=== PATIENT | male | born 1985 | race Caucasian/White ===

== ENCOUNTER 2017-07-17 23:22 | Observation (INO) | payer BC ==
[2017-07-17] MEDS ORDERED: THIAMINE 200 MG/2 ML IM ONE (23:25)
[2017-07-17] MEDS ORDERED: Dextrose 5%-Lr IV Solution 1000 ML 1,000 ML IV SCH (23:30)
--- NOTE | 2017-07-17 23:37 | ERPHSYRPT ---
- History of Present Illness Time Seen by Provider: 07/17/17 23:25 Source: patient, police (placed under [facility]) Patient Subjective Stated Complaint: states here because of drinking Triage Nursing Assessment: admits to drinking daily 1/2 pint to fifth of vodka Physician History: CC: suicidal thoughts Hx: 32 y/o patient withy no local doctor. He is a regular drinker of alcohol. He lives home with his mom, sister, and step dad. He has a girlfriend. Police were called by family after he told them he wanted to kill himself. He states he wanted to drive a car into a [place]. He now does not feel that way. Drank today. Prior suicide thoughts of cutting himself. 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 Severity of Symptoms-Max: moderate Severity of Symptoms-Current: mild Allergies/Adverse Reactions: No Known Drug Allergies Allergy (Unverified 08/23/13 11:28) Home Medications: No Home Meds [No Home Meds] 08/23/13 [History] Hx Tetanus, Diphtheria Vaccination/Date Given: Yes Hx Influenza Vaccination/Date Given: No Hx Pneumococcal Vaccination/Date Given: No Immunizations Up to Date: Yes - Past Medical History Pertinent Past Medical History: Yes Psycho-Social History: Other Other Medical History: LUNG COLLAPSE - Past Surgical History Past Surgical History: Yes Other Surgical History: REINFLATION OF LUNG-CHEST TUBE - Social History Smoking Status: Current every day smoker How long have you smoked: YRS Exposure to second hand smoke: Yes Drug Use: none Patient Lives Alone: No - Review of Systems Constitutional: No Symptoms Eyes: No Symptoms Respiratory: No Cough, No Dyspnea Cardiac: No Chest Pain Abdominal/Gastrointestinal: No Abdominal Pain, No Vomiting Musculoskeletal: No Back Pain, No Neck Pain Skin: No Rash Neurological: No Headache Psychological: Alcohol Abuse, Suicidal Ideations, No Drug Abuse All Other Systems: Reviewed and Negative - Nursing Vital Signs Nursing Vital Signs: Initial Vital Signs Temperature 98 F 07/17/17 23:24 Pulse Rate 124 H 07/17/17 23:24 Respiratory Rate 20 07/17/17 23:24 Blood Pressure 129/86 07/17/17 23:24 O2 Sat by Pulse Oximetry 98 07/17/17 23:24 Pain Scale Pain Intensity 0 - Physical Exam General Appearance: alert Eyes, Ears, Nose, Throat Exam: normal ENT inspection, moist mucous membranes Neck Exam: normal inspection, non-tender, supple Respiratory Exam: normal breath sounds Cardiovascular Exam: regular rate/rhythm Gastrointestinal/Abdominal Exam: soft, No tenderness, No distention, No mass, No guarding Extremities Exam: normal inspection, normal range of motion Neurological Exam: alert, 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, oriented x 3 Appearance: appropriate appearance Behavior/Eye Contact/Speech: alert & cooperative (flat affect) Thoughts/Hallucinations: normal thought pattern Skin Exam: warm, dry, No rash SpO2 Interpretation: normal SpO2: 98 Oxygen Delivery: Room Air - Course Nursing assessment & vital signs reviewed: Yes Ordered Tests: Active Orders 24 hr Category Date Time Status Clean Catch Urine Specimen STAT Care 07/17/17 23:25 Active IV Insertion STAT Care 07/17/17 23:25 Active UA W/ MICROSCOPIC Stat Lab 07/17/17 00:50 Completed Urine Triage Profile Stat Lab 07/17/17 00:50 Completed Medication Summary Generic Name Dose Route Start Last Admin Trade Name Freq PRN Reason Stop Dose Admin Dextrose/Lactated Ringer's 1,000 mls @ 100 mls/hr 07/17/17 23:30 07/17/17 23: 52 Dextrose 5%-Lr Iv Solution 1000 Ml IV 08/16/17 23:29 100 mls/hr .Q10H NNEKA Administration Discontinued Medications Generic Name Dose Route Start Last Admin Trade Name Freq PRN Reason Stop Dose Admin Thiamine HCl 100 mg 07/17/17 23:25 07/17/17 23:52 Thiamine 200 Mg/2 Ml IM 07/17/17 23:26 100 mg STAT ONE Administration Thiamine HCl Confirm 07/17/17 23:40 Thiamine 200 Mg/2 Ml Administered 07/17/17 23:41 Dose 200 mg .ROUTE .STK-MED ONE Lab/Rad Data: Laboratory Result Diagrams 07/17/17 00:00 07/17/17 00:00 Laboratory Results 07/17/17 07/17/17 07/17/17 Range/Units 00:50 00:50 00:00 WBC (4.0-10.5) K/mm3 RBC (4.1-5.6) M/mm3 Hgb (12.5-18.0) gm/dl Hct (42-50) % MCV (78-100) fl MCH (26-32) pg MCHC (32-36) g/dl RDW (11.5-14.0) % Plt Count (150-450) K/mm3 MPV (6-9.5) fl Gran % (36.0-66.0) % Lymphocytes % (24.0-44.0) % Monocytes % (0.0-12.0) % Eosinophils % (0.00-5.0) % Basophils % (0.0-0.4) % Basophils # (0-0.4) Sodium (136-145) mEq/L Potassium (3.5-5.1) mEq/L Chloride (98-107) mEq/L Carbon Dioxide (21-32) mEq/L Anion Gap (5-15) MEQ/L BUN (9-20) mg/dL Creatinine (0.55-1.30) mg/dl Estimated GFR ML/MIN Glucose (70-110) MG/DL Calcium (8.5-10.1) mg/dL Magnesium 1.9 (1.8-2.4) mg/dL Total Bilirubin (0.2-1.0) mg/dL AST (15-37) U/L ALT (12-78) U/L Alkaline Phosphatase (46-116) U/L Serum Total Protein (6.4-8.2) gm/dL Albumin (3.4-5.0) g/dL Ur Collection Type CCMS Urine Color YELLOW (YELLOW) Urine Appearance CLEAR (CLEAR) Urine pH 7.0 (5-6) Ur Specific [place] 1.015 (1.005-1.025) Urine Protein TRACE (Negative) Urine Ketones NEGATIVE (NEGATIVE) Urine Blood NEGATIVE (0-5) Vj/ul Urine Nitrite NEGATIVE (NEGATIVE) Urine Bilirubin NEGATIVE (NEGATIVE) Urine Urobilinogen NORMAL (0-1) mg/dL Ur Leukocyte Esterase NEGATIVE (NEGATIVE) Urine Microscopic WBC 0-2 (0-5) /HPF Ur Epithelial Cells RARE (FEW) /HPF Urine Culture Reflexed NO (NO) Urine Glucose NEGATIVE (NEGATIVE) mg/dL Salicylates (2.8-20.0) mg/dl Urine Opiates Level NEG. (NEGATIVE) Ur Methadone NEG. (NEGATIVE) Acetaminophen (10-30) ug/ml Urine Barbiturates NEG. (NEGATIVE) Ur Phencyclidine (PCP) NEG. (NEGATIVE) Urine Amphetamine NEG. (NEGATIVE) U Benzodiazepine Level NEG. (NEGATIVE) Urine Cocaine NEG. (NEGATIVE) Urine Marijuana (THC) NEG. (NEGATIVE) Ethyl Alcohol (0.00-0.01) % Specimen Received 07-18-17 0100 07/17/17 07/17/17 Range/Units 00:00 00:00 WBC 7.0 (4.0-10.5) K/mm3 RBC 4.58 (4.1-5.6) M/mm3 Hgb 15.2 (12.5-18.0) gm/dl Hct 45.6 (42-50) % MCV 99.6 (78-100) fl MCH 33.2 H (26-32) pg MCHC 33.3 (32-36) g/dl RDW 13.0 (11.5-14.0) % Plt Count 171 (150-450) K/mm3 MPV 11.0 H (6-9.5) fl Gran % 59.9 (36.0-66.0) % Lymphocytes % 29.4 (24.0-44.0) % Monocytes % 8.2 (0.0-12.0) % Eosinophils % 2.4 (0.00-5.0) % Basophils % 0.1 (0.0-0.4) % Basophils # 0.01 (0-0.4) Sodium 146 H (136-145) mEq/L Potassium 3.8 (3.5-5.1) mEq/L Chloride 109 H (98-107) mEq/L Carbon Dioxide 25.2 (21-32) mEq/L Anion Gap 15.6 H (5-15) MEQ/L BUN 7 L (9-20) mg/dL Creatinine 0.78 (0.55-1.30) mg/dl Estimated GFR > 60 ML/MIN Glucose 130 H (70-110) MG/DL Calcium 9.1 (8.5-10.1) mg/dL Magnesium (1.8-2.4) mg/dL Total Bilirubin 0.10 L (0.2-1.0) mg/dL AST 45 H (15-37) U/L ALT 62 (12-78) U/L Alkaline Phosphatase 120 H (46-116) U/L Serum Total Protein 8.0 (6.4-8.2) gm/dL Albumin 3.8 (3.4-5.0) g/dL Ur Collection Type Urine Color (YELLOW) Urine Appearance (CLEAR) Urine pH (5-6) Ur Specific [place] (1.005-1.025) Urine Protein (Negative) Urine Ketones (NEGATIVE) Urine Blood (0-5) Vj/ul Urine Nitrite (NEGATIVE) Urine Bilirubin (NEGATIVE) Urine Urobilinogen (0-1) mg/dL Ur Leukocyte Esterase (NEGATIVE) Urine Microscopic WBC (0-5) /HPF Ur Epithelial Cells (FEW) /HPF Urine Culture Reflexed (NO) Urine Glucose (NEGATIVE) mg/dL Salicylates 3.3 (2.8-20.0) mg/dl Urine Opiates Level (NEGATIVE) Ur Methadone (NEGATIVE) Acetaminophen < 2.0 L (10-30) ug/ml Urine Barbiturates (NEGATIVE) Ur Phencyclidine (PCP) (NEGATIVE) Urine Amphetamine (NEGATIVE) U Benzodiazepine Level (NEGATIVE) Urine Cocaine (NEGATIVE) Urine Marijuana (THC) (NEGATIVE) Ethyl Alcohol 0.415 H* (0.00-0.01) % Specimen Received - Progress Progress Note: 07/18/17 01:18 Pt has been cooperative. BAL 0.415. Will no tbe able to obtain mental health consult at that level tonite. Advised pt and parents he will be admitted to ICU observation with consult in AM. Spoke to Dr Murrell (oc) for admission to obs ICU. Discussed with : Handy Will see patient in: hospital (observation) Counseled pt/family regarding: lab results, diagnosis, need for follow-up - Departure Time of Disposition: 01:19 Departure Disposition: Observation (ICU) Clinical Impression: Suicide ideation, police immediate snf, Alcohol intoxication Condition: Stable Critical Care Time: No
[2017-07-17] MEDS ORDERED: THIAMINE 200 MG/2 ML ONE (23:40)
[2017-07-17] MEDS ORDERED: Dextrose 5%-Lr IV Solution 1000 ML 1,000 ML IV ONE (23:40)
[2017-07-18 00:11] LABS: BASOPHIL % 0.1 % (0.0-0.4); Basophil (Absolute #) 0.01 (0-0.4); Eosinophil % 2.4 % (0.00-5.0); Eosinophil (Absolute #) 0.17 (0-0.5); Granulocyte Absolute (ANC) 4.16 (1.4-6.9); Granulocytes % 59.9 % (36.0-66.0); Hematocrit 45.6 % (42-50); Hemoglobin 15.2 gm/dl (12.5-18.0); Lymphocyte (Absolute #) 2.04 (1.0-4.6); Lymphocytes % 29.4 % (24.0-44.0); Mean Cell Volume 99.6 fl (78-100); Mean Corpuscular Hemoglobin 33.2 pg (26-32); Mean Corpuscular Hgb Concent. 33.3 g/dl (32-36); Monocyte (Absolute #) 0.57 (0.0-1.3); Monocytes % 8.2 % (0.0-12.0); Platelet Count 171 K/mm3 (150-450); Red Blood Count 4.58 M/mm3 (4.1-5.6)
[2017-07-18 00:28] LABS: ALBUMIN 3.8 g/dL (3.4-5.0); ALKALINE PHOSPHATASE 120 U/L (46-116); ANION GAP 15.6 MEQ/L (5-15); BLOOD UREA NITROGEN 7 mg/dL (9-20); CHLORIDE 109 mEq/L (98-107); Calcium 9.1 mg/dL (8.5-10.1); Carbon Dioxide 25.2 mEq/L (21-32); Creatinine 1 0.78 mg/dl (0.55-1.30); EST GLOMERULAR FILTRATION RATE > 60 ML/MIN; Glucose 130 MG/DL (70-110); Potassium 3.8 mEq/L (3.5-5.1); SALICYLATE 3.3 mg/dl (2.8-20.0); SGOT/AST 45 U/L (15-37); SGPT/ALT 62 U/L (12-78); SODIUM 146 mEq/L (136-145)
[2017-07-18 00:30] LABS: ACETAMINOPHEN < 2.0 ug/ml (10-30)
[2017-07-18 00:31] LABS: ETHYL ALCOHOL 0.415 % (0.00-0.01)
[2017-07-18 01:10] LABS: Amphetamine,Urine NEG. (NEGATIVE); Barbiturate,Urine NEG. (NEGATIVE); Benzodiazepine,Urine NEG. (NEGATIVE); Cocaine,Urine NEG. (NEGATIVE); Methadone,Urine NEG. (NEGATIVE); Opiate,Urine NEG. (NEGATIVE); PCP,Urine NEG. (NEGATIVE); THC,Urine NEG. (NEGATIVE)
[2017-07-18 01:12] LABS: Appearance CLEAR (CLEAR); Bilirubin NEGATIVE (NEGATIVE); Blood NEGATIVE Ery/ul (0-5); Epithelial Cells RARE /HPF (FEW); Glucose NEGATIVE (NEGATIVE); Ketones NEGATIVE (NEGATIVE); Leukocyte Esterase NEGATIVE (NEGATIVE); Nitrite NEGATIVE (NEGATIVE); Protein,Urine Dip TRACE (Negative); Specific Gravity 1.015 (1.005-1.025); Urobilinogen NORMAL mg/dL (0-1); WBC 0-2 /HPF (0-5)
[2017-07-18] MEDS ORDERED: TYLENOL 325 MG PO PRN (02:31)
[2017-07-18] MEDS ORDERED: Dextrose 5%-Lr IV Solution 1000 ML 1,000 ML IV SCH (02:31)
--- NOTE | 2017-07-18 14:38 | PCM.SSS ---
History of Present Illness - Chief Complaint Chief Complaint: suicide ideation History of Present Illness: is a 32 year old male who was admitted last night, intoxicated, with suicidal ideation. He came through the ER and was apparently detained by the police. He said he wanted to kill himself. This morning he states he is feeling, "alright," does not want to harm himself. He has a history of intermittent depression; has been on meds before but no previous admissions to psychiatric facility for depression or suicide attempt. He has, however, been inpatient in a detox facility for alcohol addiction. Currently he admits to drinking up to a fifth of alcohol a day. Prior to admission he had a larger amount of alcohol. He states he remembers all of that. Last detox admission about 2 years ago. - Review of Systems Constitutional: Weight Loss (15 lb in past 2 mo, he thinks related to his increased activity at work.) Respiratory: Cough (this morning) Psychological: Depression, Suicidal Ideations (none currently), No Anxiety, No Homicidal Ideations All Other Systems: Reviewed and Negative Medications & Allergies Home Medications: Home Medication List Amoxicillin [Amoxil] 500 mg PO QID #40 capsule 08/23/13 [Rx] No Home Meds [No Home Meds] 08/23/13 [History Confirmed 08/23/13] Fluoxetine HCl 20 mg [Prozac 20 MG] 20 mg PO DAILY #30 cap 07/18/17 [Rx] Allergies/Adverse Reactions: Allergies Allergy/AdvReac Type Severity Reaction Status Date / Time No Known Drug Allergies Allergy Unverified 08/23/13 11:28 - Past Medical History Past Medical History: Yes Pyscho-Social History: Other Comment: LUNG COLLAPSE - Past Surgical History Past Surgical History: Yes Other Surgical History: REINFLATION OF LUNG-CHEST TUBE - Social History Smoking Status: Unknown if ever smoked How long have you smoked: YRS Exposure to second hand smoke: Yes Alcohol: Daily Drug Use: none - Physical Exam Vital Signs: Vital Signs - 24 hr Temp Pulse Resp BP Pulse Ox 07/18/17 13:21 93 H 16 138/86 96 07/18/17 12:00 93 H 07/18/17 08:00 97.8 F 90 16 105/67 96 07/18/17 05:18 98.7 F 90 15 113/53 95 07/18/17 04:00 98.7 F 90 19 113/65 93 L 07/18/17 01:31 98.7 F 111 H 131/68 96 07/18/17 01:19 98 07/17/17 23:24 98 F 124 H 20 129/86 98 General Appearance: no apparent distress, alert Neurologic Exam: oriented x 3, cooperative Eye Exam: eyes nml inspection, other (pupils sluggishly reactive bilat) Ears, Nose, Throat Exam: pharynx normal, moist mucous membranes Neck Exam: normal inspection, non-tender, supple, No lymphadenopathy Respiratory Exam: normal breath sounds, lungs clear, No crackles/rales, No rhonchi, No wheezing Cardiovascular Exam: regular rate/rhythm, normal heart sounds, No murmur Gastrointestinal/Abdomen Exam: soft, normal bowel sounds, No tenderness, No distention, No mass Back Exam: normal inspection, No rash Extremity Exam: normal inspection, No pedal edema, No swelling Skin Exam: normal color, warm, dry, No rash Results - Labs Lab/Micro Results: Lab Results-Last 24 Hours 07/18/17 07/18/17 Range/Units 05:15 12:02 Ethyl Alcohol 0.229 H* 0.048 H (0.00-0.01) % Assessment/Plan (1) Suicide ideation Current Visit: Yes Status: Resolved Assessment & Plan: [facility] consult done, they recommended outpatient detox as below. Code(s): R45.851 - SUICIDAL IDEATIONS (2) Depression Current Visit: Yes Status: Chronic Qualifiers: Depression Type: major depressive disorder Active/Remission status: currently active Psychotic features: without psychotic features Assessment & Plan: Will start pt on po prozac; he is to follow up with his PCP in 1 week then as directed. Code(s): F32.9 - MAJOR DEPRESSIVE DISORDER, SINGLE EPISODE, UNSPECIFIED (3) Alcohol intoxication Current Visit: Yes Status: Acute Qualifiers: Complication of substance-induced condition: uncomplicated Qualified Code(s ): F10.920 - Alcohol use, unspecified with intoxication, uncomplicated Assessment & Plan: His level is down, will recheck one more time at 4 pm and send him home then ( his mom will take him home). Should be fine to return to work tomorrow. Regarding chronic abuse of alcohol, [facility] recommended outpatient detox. He will need a program so that he does not have dangerous withdrawal considering the large amount of alcohol he ingests daily (would worry about Delerium Tremens). Hospital Summary - Hospital Course Hospital Course: Pt admitted w suicidal ideation, intoxicated. Found to have KATERINA of 0.415%. In the morning he denies suicidal ideation. [facility] recommends outpatient alcohol detox. I am starting him on 20 mg prozac daily. He is to f/u with PCP in 1 week. - Vitals & Intake/Output Vital Signs: Vital Signs Temperature 97.8 F 07/18/17 08:00 Pulse Rate 93 H 07/18/17 13:21 Respiratory Rate 16 07/18/17 13:21 Blood Pressure 138/86 07/18/17 13:21 O2 Sat by Pulse Oximetry 96 07/18/17 13:21 Intake & Output: Intake & Output 07/16/17 07/17/17 07/18/17 07/19/17 11:59 11:59 11:59 11:59 Intake Total 240 Balance 240 Weight 68.2 kg - Lab Result Diagrams: 07/17/17 00:00 07/17/17 00:00 Lab Results-Last 24 Hrs: Lab Results-Last 24 Hours 07/18/17 07/18/17 Range/Units 05:15 12:02 Ethyl Alcohol 0.229 H* 0.048 H (0.00-0.01) % - Discharge Disposition: Home, Self-Care Condition: Stable Prescriptions: New Fluoxetine HCl 20 mg [Prozac 20 MG] 20 mg PO DAILY #30 cap Continue No Home Meds [No Home Meds] Amoxicillin [Amoxil] 500 mg PO QID #40 capsule Follow up with: GERMAN TRISTAN MD [Primary Care Provider] - 1 Week
[2017-07-18 16:25] LABS: ANION GAP 10.8 MEQ/L (5-15); BLOOD UREA NITROGEN 7 mg/dL (9-20); CHLORIDE 105 mEq/L (98-107); Calcium 8.7 mg/dL (8.5-10.1); Carbon Dioxide 27.2 mEq/L (21-32); Creatinine 1 0.69 mg/dl (0.55-1.30); EST GLOMERULAR FILTRATION RATE > 60 ML/MIN; Glucose 106 MG/DL (70-110); Potassium 3.7 mEq/L (3.5-5.1); SODIUM 139 mEq/L (136-145)
[2017-07-18 18:07] VITALS: BP 141/93; PULSE 85; O2SAT 97
== END 2017-07-18 17:48 | disposition home or self-care (01) ==
LOC: ED 23:22 → ICU 07-18 01:52
PROVIDERS: ADMIT Family Medicine; ATTEND Family Medicine
DX: F32.9 Major depressive disorder, single episode, unspecified (principal); F10.129 Alcohol abuse with intoxication, unspecified
CPT/HCPCS: 36415; 80048; 80053; 80307; 81000; 83735; 85025; 96360; 99285; G0378; G0481

== ENCOUNTER 2018-07-10 00:43 | Observation (INO) | payer BC, OTHER ==
[2018-07-10] MEDS ORDERED: ZOFRAN ODT 4 MG PO ONE (01:21)
[2018-07-10] MEDS ORDERED: ZOFRAN ODT 4 MG ONE (01:29)
[2018-07-10 01:38] LABS: BASOPHIL % 0.4 % (0.0-0.4); Basophil (Absolute #) 0.03 (0-0.4); Eosinophil % 2.1 % (0.00-5.0); Eosinophil (Absolute #) 0.17 (0-0.5); Granulocyte Absolute (ANC) 5.25 (1.4-6.9); Granulocytes % 64.2 % (36.0-66.0); Hematocrit 52.3 % (42-50); Hemoglobin 17.3 gm/dl (12.5-18.0); Lymphocyte (Absolute #) 2.11 (1.0-4.6); Lymphocytes % 25.9 % (24.0-44.0); Mean Cell Volume 100.4 fl (78-100); Mean Corpuscular Hemoglobin 33.2 pg (26-32); Mean Corpuscular Hgb Concent. 33.1 g/dl (32-36); Mean Platelet Volume 9.5 fl (6-9.5); Monocytes % 7.4 % (0.0-12.0); Platelet Count 322 K/mm3 (150-450); Red Blood Count 5.21 M/mm3 (4.1-5.6); Red Cell Distribution Width 13.8 % (11.5-14.0); White Blood Count 8.2 K/mm3 (4.0-10.5)
[2018-07-10 01:43] LABS: Appearance SLIGHTLY CLOUDY (CLEAR); Bilirubin NEGATIVE (NEGATIVE); Blood NEGATIVE Ery/ul (0-5); Glucose NEGATIVE (NEGATIVE); Ketones TRACE (NEGATIVE); Leukocyte Esterase NEGATIVE (NEGATIVE); Nitrite NEGATIVE (NEGATIVE); Protein,Urine Dip 100 (Negative); Specific Gravity 1.025 (1.005-1.025); Urobilinogen 2 mg/dL (0-1)
--- NOTE | 2018-07-10 01:48 | ERPHSYRPT ---
- History of Present Illness Time Seen by Provider: 07/10/18 01:03 Source: patient, police Patient Subjective Stated Complaint: Behavioral/ Suicidal ideation Triage Nursing Assessment: Patient brought into ED via Police and transferred to bed per self. Patient A+O X 3. Patient cooperative with a flat effect. Patient states he just feel like he wants to be . Patient states he told his mother he was going to shoot himself in the head. Patient states he does have access to a 20 gauge shot gun. Police had been drinking tonight and stated he was threatening to shoot himself with a gun. After family called Police he was attempting to leave and stated he was going to wrap his car around a tree. Patient'a lungs clear with occasional non-productive cough noted. Patient states he drank a fifth of vodka tonight. Physician History: 33 y/o white male intoxicated with at least a 1/5 vodka brought into ED by police. pt has been drinking daily for 4 days. pt texted his girlfriend and told her he was going to shoot himself. pt told his mother he was going to shoot himself in the head. pt does admit to saying that. he admitted he has access to a 20 gauge shotgun. pt also told family members he was leaving, went to his car and stated he was going to wrap his car around a tree. he threatened police officers. pt was cooperative with police during transport to ED. pt has had suicidal gestures and ideation in the past. Timing/Duration: today Severity of Symptoms-Max: mild Severity of Symptoms-Current: mild Context related to: significant other Suicidal thoughts: gesture, specific plan Associated Symptoms: depressed, frustrated, impaired concentration, ingestion ( etoh), suicidal ideation Previous symptoms: same symptoms as today Allergies/Adverse Reactions: No Known Drug Allergies Allergy (Verified 07/10/18 01:05) Hx Tetanus, Diphtheria Vaccination/Date Given: Yes Hx Influenza Vaccination/Date Given: No Hx Pneumococcal Vaccination/Date Given: No Immunizations Up to Date: Yes - Past Medical History Pertinent Past Medical History: Yes Neurological History: No Pertinent History ENT History: No Pertinent History Cardiac History: No Pertinent History Respiratory History: No Pertinent History Endocrine Medical History: No Pertinent History Musculoskeletal History: No Pertinent History GI Medical History: No Pertinent History History: No Pertinent History Psycho-Social History: Depression Other Medical History: LUNG COLLAPSE - Past Surgical History Past Surgical History: Yes Neuro Surgical History: No Pertinent History Cardiac: No Pertinent History Respiratory: No Pertinent History Gastrointestinal: No Pertinent History Genitourinary: No Pertinent History Musculoskeletal: No Pertinent History Other Surgical History: REINFLATION OF LUNG-CHEST TUBE - Social History Smoking Status: Current every day smoker How long have you smoked: 20 years Exposure to second hand smoke: Yes Drug Use: marijuana Patient Lives Alone: No - Review of Systems Constitutional: No Symptoms Eyes: No Symptoms Ears, Nose, & Throat: No Symptoms Respiratory: No Symptoms Cardiac: No Symptoms Abdominal/Gastrointestinal: No Symptoms Genitourinary Symptoms: No Symptoms Musculoskeletal: No Symptoms Skin: No Symptoms Neurological: No Symptoms Psychological: Depression, Suicidal Ideations, Emotional Lability Endocrine: No Symptoms Hematologic/Lymphatic: No Symptoms Immunological/Allergic: No Symptoms All Other Systems: Reviewed and Negative - Nursing Vital Signs Nursing Vital Signs: Initial Vital Signs Temperature 99.7 F 07/10/18 00:51 Pulse Rate 128 H 07/10/18 00:51 Respiratory Rate 20 07/10/18 00:51 Blood Pressure 143/96 07/10/18 00:51 O2 Sat by Pulse Oximetry 95 07/10/18 00:51 Pain Scale Pain Intensity 0 - Physical Exam General Appearance: no apparent distress, alert, anxiety Eyes, Ears, Nose, Throat Exam: normal ENT inspection, moist mucous membranes Neck Exam: normal inspection, non-tender, supple, full range of motion Respiratory Exam: normal breath sounds, lungs clear, airway intact, No chest tenderness, No respiratory distress, No accessory muscle use, No rhonchi, No wheezing, No stridor Cardiovascular Exam: regular rate/rhythm, normal heart sounds, normal peripheral pulses Gastrointestinal/Abdominal Exam: soft, normal bowel sounds, rebound, No tenderness, No guarding Extremities Exam: normal inspection, normal range of motion Current Suicidality: has suicide plan Neurological Exam: alert, oriented x 3, anxious, depressed affect Appearance: impaired insight Behavior/Eye Contact/Speech: alert & cooperative (but becoming more agitated and aggressive languag), threatening eye contact, agitated Thoughts/Hallucinations: normal thought pattern, no apparent hallucination Skin Exam: normal color, warm, dry SpO2 Interpretation: normal SpO2: 95 Oxygen Delivery: Room Air - Course Nursing assessment & vital signs reviewed: Yes EKG Interpreted by Me: RATE, Sinus Tach, NORMAL AXIS, NORMAL INTERVALS, NORMAL QRS, NORMAL ST-T, Other (no comparison EKG) Ordered Tests: Active Orders 24 hr Category Date Time Status Photographic Editor STAT Care 07/10/18 01:22 Active EKG-ER Only STAT Care 07/10/18 01:21 Active IV Insertion STAT Care 07/10/18 02:30 Active Psychiatric Consult STAT Cons 07/10/18 01:21 Active ACETAMINOPHEN Stat Lab 07/10/18 01:30 Completed Blood Alcohol [ETHYL ALCOHOL] Stat Lab 07/10/18 02:50 Completed CBC W DIFF Stat Lab 07/10/18 01:30 Completed CMP Stat Lab 07/10/18 01:30 Completed ETHYL ALCOHOL Stat Lab 07/10/18 01:30 Completed ETHYL ALCOHOL Stat Lab 07/10/18 04:40 Completed ETHYL ALCOHOL Stat Lab 07/10/18 06:30 Completed SALICYLATE Stat Lab 07/10/18 01:30 Completed UA W/RFX UR CULTURE Stat Lab 07/10/18 01:13 Completed Urine Triage Profile Stat Lab 07/10/18 01:13 Completed Transfer Order Routine Transfer 07/10/18 Ordered Medication Summary Generic Name Dose Route Start Last Admin Trade Name Freq PRN Reason Stop Dose Admin Sodium Chloride 1,000 mls @ 150 mls/hr 07/10/18 05:30 07/10/18 05:21 Sodium Chloride 0.9% 1000 Ml IV 08/09/18 05:29 150 mls/hr .Q6H40M NNEKA Administration Discontinued Medications Generic Name Dose Route Start Last Admin Trade Name Freq PRN Reason Stop Dose Admin Sodium Chloride 1,000 mls @ 999 mls/hr 07/10/18 02:30 07/10/18 03:47 Sodium Chloride 0.9% 1000 Ml IV 07/10/18 03:30 Infused .Q1H1M STA Infusion Sodium Chloride Confirm 07/10/18 02:37 Sodium Chloride 0.9% 1000 Ml Administered 07/10/18 02:38 Dose 1,000 mls @ ud .ROUTE .STK-MED ONE Sodium Chloride Confirm 07/10/18 03:41 Sodium Chloride 0.9% 1000 Ml Administered 07/10/18 03:42 Dose 1,000 mls @ ud .ROUTE .STK-MED ONE Sodium Chloride 1,000 mls @ 999 mls/hr 07/10/18 03:47 07/10/18 05:17 Sodium Chloride 0.9% 1000 Ml IV 07/10/18 04:47 Infused .Q1H1M STA Infusion Ondansetron HCl 4 mg 07/10/18 01:21 07/10/18 01:31 Zofran Odt 4 Mg PO 07/10/18 01:22 Not Given STAT ONE Ondansetron HCl Confirm 07/10/18 01:29 Zofran Odt 4 Mg Administered 07/10/18 01:30 Dose 4 mg .ROUTE .STK-MED ONE Lab/Rad Data: Laboratory Result Diagrams 07/10/18 01:30 07/10/18 01:30 Laboratory Results 07/10/18 07/10/18 07/10/18 Range/Units 06:30 04:40 02:50 WBC (4.0-10.5) K/mm3 RBC (4.1-5.6) M/mm3 Hgb (12.5-18.0) gm/dl Hct (42-50) % MCV (78-100) fl MCH (26-32) pg MCHC (32-36) g/dl RDW (11.5-14.0) % Plt Count (150-450) K/mm3 MPV (6-9.5) fl Gran % (36.0-66.0) % Eos # (Auto) (0-0.5) Absolute Lymphs (auto) (1.0-4.6) Absolute Monos (auto) (0.0-1.3) Lymphocytes % (24.0-44.0) % Monocytes % (0.0-12.0) % Eosinophils % (0.00-5.0) % Basophils % (0.0-0.4) % Absolute Granulocytes (1.4-6.9) Basophils # (0-0.4) Sodium (137-145) mmol/L Potassium (3.5-5.1) mmol/L Chloride (98-107) mmol/L Carbon Dioxide (22-30) mmol/L Anion Gap (5-15) MEQ/L BUN (9-20) mg/dL Creatinine (0.66-1.25) mg/dL Estimated GFR ML/MIN Glucose (74-106) mg/dL Calcium (8.4-10.2) mg/dL Total Bilirubin (0.2-1.3) mg/dL AST (17-59) U/L ALT (0-50) U/L Alkaline Phosphatase (38-126) U/L Serum Total Protein (6.3-8.2) g/dL Albumin (3.5-5.0) g/dL Urine Color (YELLOW) Urine Appearance (CLEAR) Urine pH (5-6) Ur Specific [place] (1.005-1.025) Urine Protein (Negative) Urine Ketones (NEGATIVE) Urine Blood (0-5) Vj/ul Urine Nitrite (NEGATIVE) Urine Bilirubin (NEGATIVE) Urine Urobilinogen (0-1) mg/dL Ur Leukocyte Esterase (NEGATIVE) Urine WBC (Auto) (0-5) /HPF Urine RBC (Auto) (0-2) /HPF U Hyaline Cast (Auto) (0-2) /LPF U Epithel Cells (Auto) (FEW) /HPF Urine Bacteria (Auto) (NEGATIVE) /HPF Unidentified Crystals (NEGATIVE) /HPF Other Casts (Auto) (NEGATIVE) /LPF Urine Mucus (Auto) (NEGATIVE) /HPF Urine Culture Reflexed (NO) Urine Glucose (NEGATIVE) mg/dL Salicylates (2-20) mg/dL Urine Opiates Level (NEGATIVE) Ur Methadone (NEGATIVE) Acetaminophen (10-30) ug/ml Urine Barbiturates (NEGATIVE) Ur Phencyclidine (PCP) (NEGATIVE) Urine Amphetamine (NEGATIVE) U Benzodiazepine Level (NEGATIVE) Urine Cocaine (NEGATIVE) Urine Marijuana (THC) (NEGATIVE) Ethyl Alcohol 234 H 267 H 339 H (0-10) mg/dL 07/10/18 07/10/18 07/10/18 Range/Units 01:30 01:30 01:13 WBC 8.2 (4.0-10.5) K/mm3 RBC 5.21 (4.1-5.6) M/mm3 Hgb 17.3 (12.5-18.0) gm/dl Hct 52.3 H (42-50) % MCV 100.4 H (78-100) fl MCH 33.2 H (26-32) pg MCHC 33.1 (32-36) g/dl RDW 13.8 (11.5-14.0) % Plt Count 322 (150-450) K/mm3 MPV 9.5 (6-9.5) fl Gran % 64.2 (36.0-66.0) % Eos # (Auto) 0.17 (0-0.5) Absolute Lymphs (auto) 2.11 (1.0-4.6) Absolute Monos (auto) 0.60 (0.0-1.3) Lymphocytes % 25.9 (24.0-44.0) % Monocytes % 7.4 (0.0-12.0) % Eosinophils % 2.1 (0.00-5.0) % Basophils % 0.4 (0.0-0.4) % Absolute Granulocytes 5.25 (1.4-6.9) Basophils # 0.03 (0-0.4) Sodium 149 H (137-145) mmol/L Potassium 4.3 (3.5-5.1) mmol/L Chloride 108 H (98-107) mmol/L Carbon Dioxide 28 (22-30) mmol/L Anion Gap 17.4 H (5-15) MEQ/L BUN 12 (9-20) mg/dL Creatinine 0.87 (0.66-1.25) mg/dL Estimated GFR > 60.0 ML/MIN Glucose 115 H (74-106) mg/dL Calcium 9.3 (8.4-10.2) mg/dL Total Bilirubin 0.30 (0.2-1.3) mg/dL AST 35 (17-59) U/L ALT 18 (0-50) U/L Alkaline Phosphatase 135 H (38-126) U/L Serum Total Protein 7.6 (6.3-8.2) g/dL Albumin 4.2 (3.5-5.0) g/dL Urine Color (YELLOW) Urine Appearance (CLEAR) Urine pH (5-6) Ur Specific [place] (1.005-1.025) Urine Protein (Negative) Urine Ketones (NEGATIVE) Urine Blood (0-5) Vj/ul Urine Nitrite (NEGATIVE) Urine Bilirubin (NEGATIVE) Urine Urobilinogen (0-1) mg/dL Ur Leukocyte Esterase (NEGATIVE) Urine WBC (Auto) (0-5) /HPF Urine RBC (Auto) (0-2) /HPF U Hyaline Cast (Auto) (0-2) /LPF U Epithel Cells (Auto) (FEW) /HPF Urine Bacteria (Auto) (NEGATIVE) /HPF Unidentified Crystals (NEGATIVE) /HPF Other Casts (Auto) (NEGATIVE) /LPF Urine Mucus (Auto) (NEGATIVE) /HPF Urine Culture Reflexed (NO) Urine Glucose (NEGATIVE) mg/dL Salicylates < 1.0 L (2-20) mg/dL Urine Opiates Level NEGATIVE (NEGATIVE) Ur Methadone NEGATIVE (NEGATIVE) Acetaminophen < 10 L (10-30) ug/ml Urine Barbiturates NEGATIVE (NEGATIVE) Ur Phencyclidine (PCP) NEGATIVE (NEGATIVE) Urine Amphetamine NEGATIVE (NEGATIVE) U Benzodiazepine Level NEGATIVE (NEGATIVE) Urine Cocaine NEGATIVE (NEGATIVE) Urine Marijuana (THC) NEGATIVE (NEGATIVE) Ethyl Alcohol 369 H (0-10) mg/dL 07/10/18 Range/Units 01:13 WBC (4.0-10.5) K/mm3 RBC (4.1-5.6) M/mm3 Hgb (12.5-18.0) gm/dl Hct (42-50) % MCV (78-100) fl MCH (26-32) pg MCHC (32-36) g/dl RDW (11.5-14.0) % Plt Count (150-450) K/mm3 MPV (6-9.5) fl Gran % (36.0-66.0) % Eos # (Auto) (0-0.5) Absolute Lymphs (auto) (1.0-4.6) Absolute Monos (auto) (0.0-1.3) Lymphocytes % (24.0-44.0) % Monocytes % (0.0-12.0) % Eosinophils % (0.00-5.0) % Basophils % (0.0-0.4) % Absolute Granulocytes (1.4-6.9) Basophils # (0-0.4) Sodium (137-145) mmol/L Potassium (3.5-5.1) mmol/L Chloride (98-107) mmol/L Carbon Dioxide (22-30) mmol/L Anion Gap (5-15) MEQ/L BUN (9-20) mg/dL Creatinine (0.66-1.25) mg/dL Estimated GFR ML/MIN Glucose (74-106) mg/dL Calcium (8.4-10.2) mg/dL Total Bilirubin (0.2-1.3) mg/dL AST (17-59) U/L ALT (0-50) U/L Alkaline Phosphatase (38-126) U/L Serum Total Protein (6.3-8.2) g/dL Albumin (3.5-5.0) g/dL Urine Color YELLOW (YELLOW) Urine Appearance SLIGHTLY CLOUDY (CLEAR) Urine pH 5.0 (5-6) Ur Specific [place] 1.025 (1.005-1.025) Urine Protein 100 (Negative) Urine Ketones TRACE (NEGATIVE) Urine Blood NEGATIVE (0-5) Vj/ul Urine Nitrite NEGATIVE (NEGATIVE) Urine Bilirubin NEGATIVE (NEGATIVE) Urine Urobilinogen 2 (0-1) mg/dL Ur Leukocyte Esterase NEGATIVE (NEGATIVE) Urine WBC (Auto) 3-5 (0-5) /HPF Urine RBC (Auto) 0-2 (0-2) /HPF U Hyaline Cast (Auto) 0-2 (0-2) /LPF U Epithel Cells (Auto) RARE (FEW) /HPF Urine Bacteria (Auto) RARE (NEGATIVE) /HPF Unidentified Crystals 2-5 (NEGATIVE) /HPF Other Casts (Auto) 2-5 (NEGATIVE) /LPF Urine Mucus (Auto) MANY (NEGATIVE) /HPF Urine Culture Reflexed NO (NO) Urine Glucose NEGATIVE (NEGATIVE) mg/dL Salicylates (2-20) mg/dL Urine Opiates Level (NEGATIVE) Ur Methadone (NEGATIVE) Acetaminophen (10-30) ug/ml Urine Barbiturates (NEGATIVE) Ur Phencyclidine (PCP) (NEGATIVE) Urine Amphetamine (NEGATIVE) U Benzodiazepine Level (NEGATIVE) Urine Cocaine (NEGATIVE) Urine Marijuana (THC) (NEGATIVE) Ethyl Alcohol (0-10) mg/dL - Progress Progress: improved, re-examined Progress Note: 07/10/18 06:50 we have been observing pt for several hours. multiple in behavioral health centers have beds but require lower blood etoh levels. we have providing pt with ivf and rechecking etoh levels. pt has been cooperative and resting. most recent etoh 234. will transfer to icu 07/10/18 07:04 reviewed pt hx, condition, labs and ekg results with dr. rod, she accepts pt for icu observation Discussed with : Rose Will see patient in: hospital (observation) Counseled pt/family regarding: lab results, diagnosis, need for follow-up - Departure Time of Disposition: 06:53 Departure Disposition: Observation Clinical Impression: Suicidal intent, Alcohol intoxication Condition: Stable Critical Care Time: No Referrals: GERMAN TRISTAN MD [Primary Care Provider] -
[2018-07-10 01:52] LABS: ALBUMIN 4.2 g/dL (3.5-5.0); BLOOD UREA NITROGEN 12 mg/dL (9-20); Calcium 9.3 mg/dL (8.4-10.2); Creatinine 1 0.87 mg/dL (0.66-1.25); Potassium 4.3 mmol/L (3.5-5.1)
[2018-07-10 01:58] LABS: Amphetamine,Urine NEGATIVE (NEGATIVE); Barbiturate,Urine NEGATIVE (NEGATIVE); Benzodiazepine,Urine NEGATIVE (NEGATIVE); Cocaine,Urine NEGATIVE (NEGATIVE); Methadone,Urine NEGATIVE (NEGATIVE); Opiate,Urine NEGATIVE (NEGATIVE); PCP,Urine NEGATIVE (NEGATIVE); THC,Urine NEGATIVE (NEGATIVE)
[2018-07-10 02:09] LABS: ALKALINE PHOSPHATASE 135 U/L (38-126); ANION GAP 17.4 MEQ/L (5-15); CHLORIDE 108 mmol/L (98-107); Carbon Dioxide 28 mmol/L (22-30); Glucose 115 mg/dL (74-106); SGOT/AST 35 U/L (17-59); SGPT/ALT 18 U/L (0-50); SODIUM 149 mmol/L (137-145); Total Protein 7.6 g/dL (6.3-8.2)
[2018-07-10 02:17] LABS: ACETAMINOPHEN < 10 ug/ml (10-30); ETHYL ALCOHOL 369 mg/dL (0-10); SALICYLATE < 1.0 mg/dL (2-20)
[2018-07-10] MEDS ORDERED: Sodium Chloride 0.9% 1000 ML 1,000 ML IV STA ×2 (02:30→03:47)
[2018-07-10] MEDS ORDERED: Sodium Chloride 0.9% 1000 ML 1,000 ML ONE ×2 (02:37→03:41)
[2018-07-10] MEDS ORDERED: Sodium Chloride 0.9% 1000 ML 1,000 ML IV SCH ×2 (05:30→07:48)
[2018-07-10] MEDS ORDERED: Zofran 4 MG/2 ML VIAL IV PRN (07:48)
[2018-07-10 12:02] VITALS: O2SAT 95
[2018-07-10 16:10] VITALS: BP 144/76; PULSE 99
--- NOTE | 2018-07-11 07:56 | SSS ---
DISCHARGE DIAGNOSES: 1) SUICIDAL IDEATION. 2) DEPRESSION. 3) ALCOHOL INTOXICATION. HISTORY: The patient is a 33 year-old white male patient who reported to his mother that he was going to shoot himself in the head. She summoned the police and they got there he reported he was going to wrap his car around a tree. At this time on my evaluation the patient reports he no longer feels like he wants to do himself harm at the present time. He does report he has been in rehab twice in [place] for similar episodes. The patient reports he drinks daily and he drank a fifth of vodka prior to making his statements today. PAST MEDICAL/SURGICAL HISTORY: Otherwise significant for depression. He had previous pneumothorax re-insufflated with a chest tube. HOME MEDICATIONS: He takes no home medications. ALLERGIES: NKDA. PHYSICAL EXAMINATION: Presently reveals a well nourished, well developed 33 year-old white male patient in no obvious distress. His vital signs on admission showed a temperature of 99.7F, pulse 120, respiratory rate 20, blood pressure 143/96. O2 saturation 95% on room air. HEENT: Normocephalic, atraumatic. Pupils equal round reactive to light. Extraocular movements intact. Oropharynx is pink and moist. NECK: Supple without lymphadenopathy, thyromegaly or JVD. CHEST: Clear to auscultation. HEART: Regular rate and rhythm without murmurs, rubs or gallops. ABDOMEN: Soft. No palpable masses. EXTREMITIES: Without clubbing, cyanosis or edema. NEUROLOGIC: The patient is alert and oriented x3. No focal deficits were noted. LAB DATA AND TESTS: Revealed a metabolic panel showing glucose 115, BUN 12, creatinine 0.87. Liver enzymes were normal. ETOH level was 369 on initial evaluation and it is now down to 183 an hour ago. His CBC was normal. UA was essentially normal as well. HOSPITAL COURSE: The patient has been monitored in the ICU and has done well and essentially has been awake and alert his entire stay. We contacted [facility] for consultation and to see if they had a bed and he has been signed off for emergency halfway by Dr. Dominguez and if they have a bed at the [facility] we will have the hydraulic corrugating machine operator counter sign it for 72 hour halfway.
[2018-07-11] MEDS ORDERED: FLUZONE QUAD (36mo-64yo) 2018-2019 SYRINGE IM ONE (10:00)
== END 2018-07-10 16:30 ==
LOC: ED 00:43 → ICU 07:30 → UNDOADMOB 07:30 → UNDODISOB 16:30
PROVIDERS: ADMIT Family Medicine; ATTEND Family Medicine
DX: R45.851 Suicidal ideations (principal); F32.9 Major depressive disorder, single episode, unspecified; F10.929 Alcohol use, unspecified with intoxication, unspecified
CPT/HCPCS: 36415; 80053; 80307; 81001; 82962; 85025; 93005; 93041; 93268; 96360; 96361; 99285; G0378; G0480; G0481; Q0162

== ENCOUNTER 2018-10-03 23:58 | Emergency (ER) | payer MEDICAID, OTHER ==
[2018-10-04] MEDS ORDERED: Sodium Chloride 0.9% 1000 ML 1,000 ML IV STA (00:07)
[2018-10-04] MEDS ORDERED: Sodium Chloride 0.9% 1000 ML 1,000 ML ONE (00:15)
[2018-10-04 00:22] LABS: BASOPHIL % 0.4 % (0.0-0.4); Basophil (Absolute #) 0.03 (0-0.4); Eosinophil % 2.1 % (0.00-5.0); Eosinophil (Absolute #) 0.15 (0-0.5); Granulocyte Absolute (ANC) 3.45 (1.4-6.9); Granulocytes % 48.2 % (36.0-66.0); Hematocrit 45.5 % (42-50); Hemoglobin 15.6 gm/dl (12.5-18.0); Lymphocyte (Absolute #) 3.02 (1.0-4.6); Lymphocytes % 42.2 % (24.0-44.0); Mean Cell Volume 97.8 fl (78-100); Mean Corpuscular Hemoglobin 33.5 pg (26-32); Mean Corpuscular Hgb Concent. 34.3 g/dl (32-36); Mean Platelet Volume 10.2 fl (6-9.5); Monocyte (Absolute #) 0.51 (0.0-1.3); Monocytes % 7.1 % (0.0-12.0); Platelet Count 226 K/mm3 (150-450); Red Blood Count 4.65 M/mm3 (4.1-5.6); Red Cell Distribution Width 13.9 % (11.5-14.0); White Blood Count 7.2 K/mm3 (4.0-10.5)
--- NOTE | 2018-10-04 00:30 | ERPHSYRPT ---
- History of Present Illness Time Seen by Provider: 10/04/18 00:02 Source: lang interpreter Exam Limitations: clinical condition Physician History: PATIENT WITH HISTORY OF ALCOHOL ABUSE BROUGHT TO EMERGENCY FOR MEDIAL CLEARANCE TO TAKE TO [facility] FOR A BREATH ALCOHOL LEVEL 300. PATIENT DENIES HEADACHE, BLURRED VISION, NAUSEA ,EMSIS Timing/Duration: today Modifying Factors: Improves With: movement Associated Symptoms: denies symptoms Allergies/Adverse Reactions: No Known Drug Allergies Allergy (Verified 10/04/18 00:11) Home Medications: No Reportable Medications [No Reported Medications] 07/10/18 [History] Hx Tetanus, Diphtheria Vaccination/Date Given: Yes Hx Influenza Vaccination/Date Given: No Hx Pneumococcal Vaccination/Date Given: No - Review of Systems Constitutional: No Fever, No Chills Eyes: No Symptoms Ears, Nose, & Throat: No Symptoms Respiratory: No Symptoms, No Cough, No Dyspnea Cardiac: No Symptoms, No Chest Pain, No Edema, No Syncope Abdominal/Gastrointestinal: No Abdominal Pain, No Nausea, No Vomiting, No Diarrhea Genitourinary Symptoms: Frequency, Urgency, Flank Pain, No Dysuria Musculoskeletal: No Symptoms, No Back Pain, No Neck Pain Skin: No Symptoms, No Rash Neurological: No Dizziness, No Focal Weakness, No Sensory Changes Psychological: No Symptoms Endocrine: No Symptoms All Other Systems: Reviewed and Negative - Past Medical History Pertinent Past Medical History: Yes Neurological History: No Pertinent History ENT History: No Pertinent History Cardiac History: No Pertinent History Respiratory History: No Pertinent History Endocrine Medical History: No Pertinent History Musculoskeletal History: No Pertinent History GI Medical History: No Pertinent History History: No Pertinent History Psycho-Social History: Depression Male Reproductive Disorders: No Pertinent History Other Medical History: LUNG COLLAPSE - Past Surgical History Past Surgical History: Yes Neuro Surgical History: No Pertinent History Cardiac: No Pertinent History Respiratory: No Pertinent History Gastrointestinal: No Pertinent History Genitourinary: No Pertinent History Musculoskeletal: No Pertinent History Male Surgical History: No Pertinent History Other Surgical History: REINFLATION OF LUNG-CHEST TUBE - Social History Smoking Status: Current every day smoker How long have you smoked: 20 years Exposure to second hand smoke: Yes Drug Use: marijuana Patient Lives Alone: No - Nursing Vital Signs Nursing Vital Signs: Initial Vital Signs Temperature 98.5 F 10/03/18 23:59 Pulse Rate 122 H 10/03/18 23:59 Respiratory Rate 18 03/20/19 23:59 Blood Pressure 147/93 03/20/19 23:59 O2 Sat by Pulse Oximetry 99 10/03/18 23:59 Pain Scale Pain Intensity 0 - Physical Exam General Appearance: no apparent distress, alert, other (normal gait) Eye Exam: PERRL/EOMI, eyes nml inspection Ears, Nose, Throat Exam: normal ENT inspection, TMs normal, pharynx normal, moist mucous membranes Neck Exam: normal inspection, non-tender, supple, full range of motion Respiratory Exam: normal breath sounds, lungs clear, No respiratory distress Cardiovascular Exam: regular rate/rhythm, normal heart sounds, normal peripheral pulses Gastrointestinal/Abdomen Exam: soft, normal bowel sounds, No tenderness, No mass Back Exam: normal inspection, normal range of motion, No CVA tenderness, No vertebral tenderness Extremity Exam: normal inspection, normal range of motion, pelvis stable Neurologic Exam: alert, oriented x 3, cooperative, normal mood/affect, nml cerebellar function, nml station & gait, sensation nml, No motor deficits Skin Exam: normal color, warm, dry, No rash Lymphatic Exam: No adenopathy SpO2 Interpretation: normal SpO2: 98 O2 Delivery: Room Air Ordered Tests: Active Orders 24 hr Category Date Time Status BMP Stat Lab 10/04/18 00:07 Completed CBC W DIFF Stat Lab 10/04/18 00:07 Completed ETHYL ALCOHOL Stat Lab 10/04/18 00:07 Completed UA W/RFX UR CULTURE Stat Lab 10/04/18 00:43 Completed Urine Triage Profile Stat Lab 10/04/18 00:43 Completed Medication Summary Discontinued Medications Generic Name Dose Route Start Last Admin Trade Name Conrado PRN Reason Stop Dose Admin Sodium Chloride 1,000 mls @ 500 mls/hr 10/04/18 00:07 10/04/18 00:17 Sodium Chloride 0.9% 1000 Ml IV 10/04/18 02:06 500 mls/hr .Q2H STA Administration Sodium Chloride Confirm 10/04/18 00:15 Sodium Chloride 0.9% 1000 Ml Administered 10/04/18 00:16 Dose 1,000 mls @ ud .ROUTE .STK-MED ONE Lab/Rad Data: Laboratory Result Diagrams 10/04/18 00:07 10/04/18 00:07 Laboratory Results 10/04/18 10/04/18 10/04/18 Range/Units 00:43 00:43 00:07 WBC (4.0-10.5) K/mm3 RBC (4.1-5.6) M/mm3 Hgb (12.5-18.0) gm/dl Hct (42-50) % MCV (78-100) fl MCH (26-32) pg MCHC (32-36) g/dl RDW (11.5-14.0) % Plt Count (150-450) K/mm3 MPV (6-9.5) fl Gran % (36.0-66.0) % Eos # (Auto) (0-0.5) Absolute Lymphs (auto) (1.0-4.6) Absolute Monos (auto) (0.0-1.3) Lymphocytes % (24.0-44.0) % Monocytes % (0.0-12.0) % Eosinophils % (0.00-5.0) % Basophils % (0.0-0.4) % Absolute Granulocytes (1.4-6.9) Basophils # (0-0.4) Sodium 147 H (137-145) mmol/L Potassium 3.8 (3.5-5.1) mmol/L Chloride 107 (98-107) mmol/L Carbon Dioxide 26 (22-30) mmol/L Anion Gap 17.1 H (5-15) MEQ/L BUN 12 (9-20) mg/dL Creatinine 0.81 (0.66-1.25) mg/dL Estimated GFR > 60.0 ML/MIN Glucose 108 H (74-106) mg/dL Calcium 8.9 (8.4-10.2) mg/dL Urine Color YELLOW (YELLOW) Urine Appearance CLEAR (CLEAR) Urine pH 6.0 (5-6) Ur Specific [place] 1.010 (1.005-1.025) Urine Protein 30 (Negative) Urine Ketones NEGATIVE (NEGATIVE) Urine Blood NEGATIVE (0-5) Vj/ul Urine Nitrite NEGATIVE (NEGATIVE) Urine Bilirubin NEGATIVE (NEGATIVE) Urine Urobilinogen NEGATIVE (0-1) mg/dL Ur Leukocyte Esterase NEGATIVE (NEGATIVE) Urine WBC (Auto) NONE (0-5) /HPF Urine RBC (Auto) NONE (0-2) /HPF U Hyaline Cast (Auto) 3-5 (0-2) /LPF U Epithel Cells (Auto) NONE (FEW) /HPF Urine Bacteria (Auto) NONE (NEGATIVE) /HPF Urine Mucus (Auto) SLIGHT (NEGATIVE) /HPF Urine Culture Reflexed NO (NO) Urine Glucose NEGATIVE (NEGATIVE) mg/dL Urine Opiates Level NEGATIVE (NEGATIVE) Ur Methadone NEGATIVE (NEGATIVE) Urine Barbiturates NEGATIVE (NEGATIVE) Ur Phencyclidine (PCP) NEGATIVE (NEGATIVE) Urine Amphetamine NEGATIVE (NEGATIVE) U Benzodiazepine Level NEGATIVE (NEGATIVE) Urine Cocaine NEGATIVE (NEGATIVE) Urine Marijuana (THC) NEGATIVE (NEGATIVE) Ethyl Alcohol 368 H (0-10) mg/dL 10/04/18 Range/Units 00:07 WBC 7.2 (4.0-10.5) K/mm3 RBC 4.65 (4.1-5.6) M/mm3 Hgb 15.6 (12.5-18.0) gm/dl Hct 45.5 (42-50) % MCV 97.8 (78-100) fl MCH 33.5 H (26-32) pg MCHC 34.3 (32-36) g/dl RDW 13.9 (11.5-14.0) % Plt Count 226 (150-450) K/mm3 MPV 10.2 H (6-9.5) fl Gran % 48.2 (36.0-66.0) % Eos # (Auto) 0.15 (0-0.5) Absolute Lymphs (auto) 3.02 (1.0-4.6) Absolute Monos (auto) 0.51 (0.0-1.3) Lymphocytes % 42.2 (24.0-44.0) % Monocytes % 7.1 (0.0-12.0) % Eosinophils % 2.1 (0.00-5.0) % Basophils % 0.4 (0.0-0.4) % Absolute Granulocytes 3.45 (1.4-6.9) Basophils # 0.03 (0-0.4) Sodium (137-145) mmol/L Potassium (3.5-5.1) mmol/L Chloride (98-107) mmol/L Carbon Dioxide (22-30) mmol/L Anion Gap (5-15) MEQ/L BUN (9-20) mg/dL Creatinine (0.66-1.25) mg/dL Estimated GFR ML/MIN Glucose (74-106) mg/dL Calcium (8.4-10.2) mg/dL Urine Color (YELLOW) Urine Appearance (CLEAR) Urine pH (5-6) Ur Specific [place] (1.005-1.025) Urine Protein (Negative) Urine Ketones (NEGATIVE) Urine Blood (0-5) Vj/ul Urine Nitrite (NEGATIVE) Urine Bilirubin (NEGATIVE) Urine Urobilinogen (0-1) mg/dL Ur Leukocyte Esterase (NEGATIVE) Urine WBC (Auto) (0-5) /HPF Urine RBC (Auto) (0-2) /HPF U Hyaline Cast (Auto) (0-2) /LPF U Epithel Cells (Auto) (FEW) /HPF Urine Bacteria (Auto) (NEGATIVE) /HPF Urine Mucus (Auto) (NEGATIVE) /HPF Urine Culture Reflexed (NO) Urine Glucose (NEGATIVE) mg/dL Urine Opiates Level (NEGATIVE) Ur Methadone (NEGATIVE) Urine Barbiturates (NEGATIVE) Ur Phencyclidine (PCP) (NEGATIVE) Urine Amphetamine (NEGATIVE) U Benzodiazepine Level (NEGATIVE) Urine Cocaine (NEGATIVE) Urine Marijuana (THC) (NEGATIVE) Ethyl Alcohol (0-10) mg/dL - Progress Progress Note: 10/04/18 02:21 IV HYDRATION NORMAL SALINE 500ML/HR, ARRIVES TO EMERGENCY ALERT ORIENTED X 3 APPROPRIATE, NORMAL GAIT, SPEECH NONSLURRED. 10/04/18 02:23 Will see patient in: hospital (full admit) Counseled pt/family regarding: lab results, diagnosis, need for follow-up - Departure Time of Disposition: 02:30 Departure Disposition: Home, Retirement/[facility] Clinical Impression: ACUTE ALCOHOL INTOXICATION Condition: Stable Critical Care Time: No Referrals: GERMAN TRISTAN MD [Primary Care Provider] - Additional Instructions: CONSULT YOUR PRIMARY CARE PROVIDER FOR FOLLOWUP IN 5-7 DAYS. RETURN TO EMERGENCY ROOM FOR PROBLEMS.
[2018-10-04 00:33] LABS: ANION GAP 17.1 MEQ/L (5-15); BLOOD UREA NITROGEN 12 mg/dL (9-20); CHLORIDE 107 mmol/L (98-107); Calcium 8.9 mg/dL (8.4-10.2); Carbon Dioxide 26 mmol/L (22-30); Creatinine 1 0.81 mg/dL (0.66-1.25); Glucose 108 mg/dL (74-106); Potassium 3.8 mmol/L (3.5-5.1); SODIUM 147 mmol/L (137-145)
[2018-10-04 00:48] LABS: ETHYL ALCOHOL 368 mg/dL (0-10)
[2018-10-04 01:06] LABS: Amphetamine,Urine NEGATIVE (NEGATIVE); Barbiturate,Urine NEGATIVE (NEGATIVE); Cocaine,Urine NEGATIVE (NEGATIVE); Methadone,Urine NEGATIVE (NEGATIVE); Opiate,Urine NEGATIVE (NEGATIVE); PCP,Urine NEGATIVE (NEGATIVE)
[2018-10-04 01:07] LABS: THC,Urine NEGATIVE (NEGATIVE)
[2018-10-04 01:25] LABS: Appearance CLEAR (CLEAR); Bilirubin NEGATIVE (NEGATIVE); Blood NEGATIVE Ery/ul (0-5); Glucose NEGATIVE (NEGATIVE); Ketones NEGATIVE (NEGATIVE); Leukocyte Esterase NEGATIVE (NEGATIVE); Mucus SLIGHT /HPF (NEGATIVE); Nitrite NEGATIVE (NEGATIVE); Protein,Urine Dip 30 (Negative); Urobilinogen NEGATIVE mg/dL (0-1)
[2018-10-04 01:42] LABS: Benzodiazepine,Urine NEGATIVE (NEGATIVE)
[2018-10-04 02:27] VITALS: BP 121/84; PULSE 99; O2SAT 97
== END 2018-10-04 02:35 | disposition home or self-care (01) ==
LOC: ED 23:58
DX: F10.129 Alcohol abuse with intoxication, unspecified (principal)
CPT/HCPCS: 36415; 80048; 80307; 81001; 85025; 96360; 96361; 99284; G0480